=== PATIENT | male | born 1960 | race Caucasian/White ===

== ENCOUNTER 2017-02-23 07:50 | Inpatient (IN) | payer BC ==
[2017-02-23] MEDS ORDERED: Sodium Chloride 0.9% 2.5 ML Syringe FLUSH PRN ×2 (08:14→15:24)
[2017-02-23] MEDS ORDERED: Sodium Chloride 0.9% 10 ML Syringe FLUSH PRN ×2 (08:14→15:24)
--- NOTE | 2017-02-23 08:18 | EDM.PDOC ---
ED HPI Trauma - General Chief Complaint: Lower Extremity Injury/Pain Stated Complaint: PAINFUL FEET Time Seen by Provider: 02/23/17 08:01 - History of Present Illness INITIAL COMMENTS - FREE TEXT/NARRATIVE: HISTORY AND PHYSICAL: History of present illness: The patient is a 56-year-old male with a history of hypertension and hypercholesterolemia who has not taken his lisinopril for the last one year and presents with a six-day history of swollen and painful bilateral lower extremities and feet. The patient states he stopped following with his doctor because he was "a quack" and that he was trying to change and adjust his medications. The patient states he stopped taking his lisinopril and did not followup with another doctor. He denies any cardiac or renal problems and has been eating and drinking normally. He has had no fever chills chest pain palpitations shortness of breath or urinary problems. He has no neurosensory changes in his lower extremities but he noticed the swelling gradually has increased over the last 6 days. He does do a lot of standing at his job but that is not new. He has had no trauma to his legs. He has no discrete calf tenderness and the pain he is describing is more in his feet and he just feels very tight. Patient sleeps on 2 pillows at night but does not ever wake up with shortness of breath. The patient does admit that he does eat a lot of sodium rich foods and processed foods. He denies any headache or neurosensory changes or weakness in his body. Please note that initially on my evaluation patient denied any abdominal pain but does says that he felt very bloated. When I went back for a second evaluation he stated that he had some right-sided dull abdominal discomfort which is not associated with any other symptomatology. Review of systems: As per history of present illness and below otherwise all systems reviewed and negative. Past medical history: As per history of present illness and as reviewed below otherwise noncontributory. Surgical history: As per history of present illness and as reviewed below otherwise noncontributory. Social history: No reported history of drug or alcohol abuse. Family history: As per history of present illness and as reviewed below otherwise noncontributory. Physical exam: General: Well-developed well-nourished male was nontoxic and speaking clearly and easily in the ED. When I was in the room his blood pressure was 197/99. HEENT: Atraumatic, normocephalic, negative for conjunctival pallor or scleral icterus, mucous membranes moist, throat clear, neck supple, nontender, trachea midline. Lungs: Clear to auscultation, breath sounds equal bilaterally, chest nontender. No work or breathing or sensory muscle use Heart: S1S2, regular, negative for clicks, rubs, or JVD. Abdomen: Soft, nondistended. There is some mild tenderness on deep palpation of the entire right side of the abdomen appear Abdomen is very rotund and bowel sounds are hypoactive. It was somewhat firm and slightly tympanitic on percussion but there is no gross fluid wave. Negative for masses or hepatosplenomegaly. Negative for costovertebral tenderness. Pelvis: Stable nontender. Genitourinary: Deferred. Rectal: Deferred. Extremities: Atraumatic, negative for cords or calf pain. Neurovascular unremarkable. There is pedal edema that does not extend beyond the proximal aspect of the tib-fib area and it is +2-+ 3. There is no leg asymmetry. There is discomfort to palpation of the entire leg area screen calf tenderness. Neuro: Awake, alert, oriented. Cranial nerves II through XII unremarkable. Cerebellum unremarkable. Motor and sensory unremarkable throughout. Exam nonfocal. Skin: Normal turgor chronic upper forearm skin changes and some scabs seen. No evidence of any icterus appreciated Diagnostics: EKG CBC CMP troponin BNP UA chest x-ray CT scan of the abdomen and pelvis After obtaining the liver function tests and reevaluating the patient with his new statement that he has right-sided abdominal pain I will do CT scan of the abdomen and pelvis Therapeutics: IV O2 monitor Lasix 1110: I discussed the case with Dr. Clay our hospitalist and he agrees for admission and I will give him a dose of Lasix 40 mg. I've also discussed all testing results with the patient and his need for admission due to his elevated liver function tests and the CT scan findings as well as his clinical presentation. I discussed with them the CT scan findings of his right hip and he states he was unaware of an injury in the past but does state he has chronic pain there. Patient is currently giving a urine sample which we'll send and the floor can follow this result. Patient again states that he is only a social drinker and that he may of had a more drinking in his past but not recently. Impression: Extremity edema and ascites with elevated LFTs, new liver dysfunction Definitive disposition and diagnosis as appropriate pending reevaluation and review of above. Allergies/ADRs: Allergies No Known Allergies Allergy (Verified 02/23/17 08:01) Home Medications: Ambulatory Orders Lisinopril 20 mg PO DAILY 03/01/14 [Confirmed 02/23/17] PARoxetine HCl [Paxil] 0 mg PO 02/23/17 Venlafaxine [Effexor] 75 mg PO DAILY 02/23/17 [Confirmed 02/23/17] atorvaSTATin [Lipitor] 10 mg PO BEDTIME 02/23/17 [Confirmed 02/23/17] Past Medical History HEENT History: Reports: Impaired vision Cardiovascular History: Reports: High cholesterol, Hypertension Psychiatric History: Reports: Anxiety Social & Family History - Family History Family Medical History: Noncontributory - Tobacco Use Years of Tobacco use: 30 - Alcohol Use Days Per Week of Alcohol Use: 1 Number of Drinks Per Day: 3 Total Drinks Per Week: 3 - Recreational Drug Use Recreational Drug Use: No Review of Systems - Review of Systems Review Of Systems: ROS reveals no pertinent complaints other than HPI. Trauma Exam - Physical Exam Exam: See Below (See dictation) Course - Vital Signs Last Recorded V/S: Last Vital Signs Temp 37.1 C 02/23/17 08:04 Pulse 82 02/23/17 09:21 Resp 18 02/23/17 09:21 BP 186/86 H 02/23/17 09:21 Pulse Ox 97 02/23/17 09:21 - Orders/Labs/Meds Orders: Active Orders 24 hr Category Date Time Status Patient Status [ADT] Stat ADT 02/23/17 11:19 Ordered Cardiac Monitoring [RC] . DIRECTED Care 02/23/17 08:14 Active EKG Documentation Completion [RC] STAT Care 02/23/17 08:14 Active Oxygen Therapy, ED [RC] ASDIRECTED Care 02/23/17 08:14 Active Pulse Oximetry [RC] ASDIRECTED Care 02/23/17 08:14 Active UA W/MICROSCOPIC [URIN] Stat Lab 02/23/17 08:14 Uncollected Sodium Chloride 0.9% [Saline Flush] Med 02/23/17 08:14 Active 10 ml FLUSH ASDIRECTED PRN Sodium Chloride 0.9% [Saline Flush] Med 02/23/17 08:14 Active 2.5 ml FLUSH ASDIRECTED PRN Saline Lock Insert [OM.PC] Stat Oth 02/23/17 08:14 Ordered Medication Orders Sodium Chloride (Saline Flush) 10 ml FLUSH ASDIRECTED PRN PRN Reason: Keep Vein Open Sodium Chloride (Saline Flush) 2.5 ml FLUSH ASDIRECTED PRN PRN Reason: Keep Vein Open Labs: Laboratory Tests 02/23/17 02/23/17 02/23/17 Range/Units 08:20 08:20 08:20 WBC 14.94 H (4.0-11.0) K/uL RBC 3.72 L (4.50-5.90) M/uL Hgb 13.1 (13.0-17.0) g/dL Hct 40.3 (38.0-50.0) % MCV 108.3 H (80.0-98.0) fL MCH 35.2 H (27.0-32.0) pg MCHC 32.5 (31.0-37.0) g/dL RDW Std Deviation 57.2 (28.0-62.0) fl RDW Coeff of Heidi 14 (11.0-15.0) % Plt Count 299 (150-400) K/uL MPV 10.60 (7.40-12.00) fL Neut % (Auto) 72.1 (48.0-80.0) % Lymph % (Auto) 14.1 L (16.0-40.0) % [place] % (Auto) 10.9 (0.0-15.0) % Eos % (Auto) 2.6 (0.0-7.0) % Baso % (Auto) 0.3 (0.0-1.5) % Neut # (Auto) 10.8 H (1.4-5.7) K/uL Lymph # (Auto) 2.1 (0.6-2.4) K/uL [place] # (Auto) 1.6 H (0.0-0.8) K/uL Eos # (Auto) 0.4 (0.0-0.7) K/uL Baso # (Auto) 0.1 (0.0-0.1) K/uL Nucleated RBC % 0.0 /100WBC Nucleated RBCs # 0 K/uL Sodium 139 (136-146) mmol/L Potassium 3.6 (3.5-5.1) mmol/L Chloride 107 (98-110) mmol/L Carbon Dioxide 20 L (21-31) mmol/L BUN 7 (6.0-23.0) mg/dL Creatinine 0.7 (0.6-1.5) mg/dL Est Cr Clr Drug Dosing 107.60 mL/min Estimated GFR (MDRD) > 60.0 ml/min Glucose 113 H (60-110) mg/dL Calcium 8.6 L (8.8-10.8) mg/dL Total Bilirubin 3.4 H (0.1-1.5) mg/dL AST 239 H (5-40) IU/L ALT 43 (8-54) IU/L Alkaline Phosphatase 305 H (40-150) Troponin I < 0.10 (0.0-0.29) NG/ML B-Natriuretic Peptide (<100) PG/ML Total Protein 7.7 (6.0-8.0) g/dL Albumin 2.8 L (3.5-5.0) g/dL Globulin 4.9 H (2.0-3.5) g/dL Albumin/Globulin Ratio 0.6 L (1.3-2.8) /06/04 Range/Units 08:20 WBC (4.0-11.0) K/uL RBC (4.50-5.90) M/uL Hgb (13.0-17.0) g/dL Hct (38.0-50.0) % MCV (80.0-98.0) fL MCH (27.0-32.0) pg MCHC (31.0-37.0) g/dL RDW Std Deviation (28.0-62.0) fl RDW Coeff of Heidi (11.0-15.0) % Plt Count (150-400) K/uL MPV (7.40-12.00) fL Neut % (Auto) (48.0-80.0) % Lymph % (Auto) (16.0-40.0) % [place] % (Auto) (0.0-15.0) % Eos % (Auto) (0.0-7.0) % Baso % (Auto) (0.0-1.5) % Neut # (Auto) (1.4-5.7) K/uL Lymph # (Auto) (0.6-2.4) K/uL [place] # (Auto) (0.0-0.8) K/uL Eos # (Auto) (0.0-0.7) K/uL Baso # (Auto) (0.0-0.1) K/uL Nucleated RBC % /100WBC Nucleated RBCs # K/uL Sodium (136-146) mmol/L Potassium (3.5-5.1) mmol/L Chloride (98-110) mmol/L Carbon Dioxide (21-31) mmol/L BUN (6.0-23.0) mg/dL Creatinine (0.6-1.5) mg/dL Est Cr Clr Drug Dosing mL/min Estimated GFR (MDRD) ml/min Glucose (60-110) mg/dL Calcium (8.8-10.8) mg/dL Total Bilirubin (0.1-1.5) mg/dL AST (5-40) IU/L ALT (8-54) IU/L Alkaline Phosphatase (40-150) Troponin I (0.0-0.29) NG/ML B-Natriuretic Peptide 198 H (<100) PG/ML Total Protein (6.0-8.0) g/dL Albumin (3.5-5.0) g/dL Globulin (2.0-3.5) g/dL Albumin/Globulin Ratio (1.3-2.8) Meds: Medications Generic Name Dose Route Start Last Admin Trade Name Freq PRN Reason Stop Dose Admin Sodium Chloride 10 ml 02/23/17 08:14 Saline Flush FLUSH ASDIRECTED PRN Keep Vein Open Sodium Chloride 2.5 ml 02/23/17 08:14 Saline Flush FLUSH ASDIRECTED PRN Keep Vein Open Discontinued Medications Generic Name Dose Route Start Last Admin Trade Name Freq PRN Reason Stop Dose Admin Furosemide 40 mg 02/23/17 11:14 Lasix IVPUSH 02/23/17 11:15 NOW ONE Iopamidol 100 ml 02/23/17 09:20 02/23/17 10:56 Isovue Multipack-370 (76%) IVPUSH 02/23/17 09:21 100 ml ONETIME STA Administration Departure - Departure Time of Disposition: 11:22 Disposition: Admitted As Inpatient 67 Condition: good Clinical Impression: Ascites of liver, Bilateral lower extremity edema, Elevated LFTs Forms: ED Department Discharge - My Orders Last 24 Hours: My Active Orders 02/23/17 08:14 Cardiac Monitoring [RC] . DIRECTED EKG Documentation Completion [RC] STAT Oxygen Therapy, ED [RC] ASDIRECTED Pulse Oximetry [RC] ASDIRECTED UA W/MICROSCOPIC [URIN] Stat Sodium Chloride 0.9% [Saline Flush] 10 ml FLUSH ASDIRECTED PRN Sodium Chloride 0.9% [Saline Flush] 2.5 ml FLUSH ASDIRECTED PRN Saline Lock Insert [OM.PC] Stat 02/23/17 11:19 Patient Status [ADT] Stat - Assessment/Plan Last 24 Hours: My Active Orders 02/23/17 08:14 Cardiac Monitoring [RC] . DIRECTED EKG Documentation Completion [RC] STAT Oxygen Therapy, ED [RC] ASDIRECTED Pulse Oximetry [RC] ASDIRECTED UA W/MICROSCOPIC [URIN] Stat Sodium Chloride 0.9% [Saline Flush] 10 ml FLUSH ASDIRECTED PRN Sodium Chloride 0.9% [Saline Flush] 2.5 ml FLUSH ASDIRECTED PRN Saline Lock Insert [OM.PC] Stat 02/23/17 11:19 Patient Status [ADT] Stat
--- NOTE | 2017-02-23 08:51 | CR ---
EXAMINATION: Portable chest radiograph. HISTORY: Shortness of breath. FINDINGS: The trachea is midline. The cardiomediastinal silhouette is within normal limits. No pulmonary infil trates, effusions or pneumothorax. Osseous structures appear unremarkable. Old left clavicle fracture noted. IMPRESSION: No acute cardiopulmonary process.
[2017-02-23 09:01] LABS: CHLORIDE,CL 107 mmol/L (98-110); SODIUM,NA 139 mmol/L (136-146)
[2017-02-23] MEDS ORDERED: Iopamidol 755 MG/ML 500 ML Multipack Bottle IVPUSH STA (09:20)
--- NOTE | 2017-02-23 11:04 | CT ---
CT of the abdomen and pelvis with contrast. HISTORY: Pain TECHNIQUE: Axial CT images were obtained of the abdomen and pelvis following administration of 100 m L of Isovue-370 in the right anterior fossa without complication. Coronal and sagittal reconstructio ns obtained. FINDINGS: The lung bases are clear, no pleural effusion. Old left-sided rib fractures noted. The liver appears heterogeneous with several hypodense areas noted the largest measuring up to appro ximately 2 cm. There is a small to moderate amount of abdominal ascites. The spleen, adrenal glands, and pancreas appear grossly unremarkable. Cholelithiasis. No bulky retroperitoneal lymphadenopathy. The kidneys enhance and function symmetrically without evidence of obstructive uropathy. Nonobstruct ing nephrolithiasis noted bilaterally. There is a cyst within the upper pole of right kidney. The large and small bowel are normal in caliber without evidence of obstruction. No focal pericoloni c inflammation. Appendectomy clips are noted. Urinary bladder appears normal. No bulky pelvic lympha denopathy. Advanced osteoarthritic changes are noted within the hips bilaterally with extensive subchondral cys tic change within the right hip with a moderate nonfused osteochondral defect. Sclerotic changes are also noted within the left hip ingesting avascular necrosis. IMPRESSION: 1. Vague hypodensities within the liver, indeterminate in nature. 2. Abdominal ascites. 3. Nonobstructing nephrolithiasis. 4. Advanced osteoarthritic changes with likely a large osteochondral defect within the right hip. Po ssibly the sequela of previous avascular necrosis. 5. Increased sclerosis within the left femoral head consistent with avascular necrosis. 6. Cholelithiasis.
[2017-02-23] MEDS ORDERED: Furosemide 40 MG/4 ML VIAL IVPUSH ONE (11:14)
--- NOTE | 2017-02-23 15:13 | PCM.HP ---
Addendum entered and electronically signed by Tamir Smith MD 02/23/17 22:10: Further lab testing is suggestive of clinical status being much worst than how patient physically presents. Patient is AAAX3, cognitively intact, afebrile, mild scleral icterus without jaundice, very mild ruq tenderness, negative murphys sign. His only complaint is the swelling in his abdomen and feet. After receiving his second dose of Lasix 40 mg IV and his first dose of Lisinopril 10 mg his BP has normalized. Updated labs reveals borderline PT (1.12), significantly increased GGT (1137) ESR (60) & CRP (11.3). His Total BR, Alk Phos , AST, & WBC Count have all slightly worsened over the past 4 hours. I discussed the case with Dr. Clay and we decided to order RUQ US. We will repeat his labs for the morning tomorrow and if they continue to worsen or if he develops any type of symptoms we will schedule him for Paracentesis with fluid analysis to r/o any possiblity of SBP. Also patients Vitamin B12 is WNL at 300 therefore his macrocytosis is likely due to folate deficiency. We will start folate therapy. Original Note: H&P History of Present Illness - General Date of Service: 02/23/17 Source of Information: Patient History Limitations: Reports: No limitations. Denies: Altered mental status, Intoxication, Respiratory distress, Uncooperative - History of Present Illness Initial Comments - Free Text/Narative: 56 yo male presented to ED on 02/23/17 due to ascites and BL pedal edema and was admitted for volume overload. Symptoms first began 6 days ago. He has never had this happen to him before. Abdominal distension and BL foot swelling have gradually worsened over the past 6 days. He has difficulty walking now due to foot discomfort from the swelling. Abdominal distension is accompanied by bloating and mild right sided abdominal pain. His appetite is intact but he is unable to eat due to the distension. He also has some mild difficulty with taking a full breath due to the distension. He denies fever, chills, weight loss , vomiting, hematemesis, constipation, diarrhea, stool changes, pruritus, confusion or altered mental status. While in the ED he was given Lasix 40 mg IV which he states caused him significant amounts of relief Patient does not currently have a PCP and has not seen a doctor in over 1 year. He claims to have had a history of HTN for 15 years for which he was on Lisinopril 20 mg daily but the last physician took him off of for unknown reasons and he has not been on any blood pressure medication since then. He denies any previous history of liver disease. He does admit to drinking whisky daily. For the past several years he drinks 1-3 glasses of whisky per day. He denies any known history or exposure to Hepatitis B or C. He has not travelled out of the country, he has not been sexually active for 9 years and he denies any previous history of incarceration, IVDA or blood transfusion. He is unsure of his vaccine status but does not think he is up to date. He states he developed his daily alcohol habit a few years ago after developing pain in his right hip. The pain began suddenly after he tried to get out of bed and felt his leg pop. He tried taking OTC meds but no improvement so he turned to alcohol. He smokes 1.5 PPD. His home is originally in [place], [place] but he works in [place] in the [employer] industry. While in ED patient was hypertensive with significant ascites and BL Pedal edema. He had blood work which revealed Transamenitis, hyperbilirubinemia, hypoalbuminemia, leukocytosis & Macrocytosis. He had CXR done which showed no acute changes. He had CT abdomen done which revealed possible fatty liver, cholelithiasis, BL non-obstructing nephrolithiasis, & right hip avascular necrosis. He was given 40 mg IV Lasix which led to significant improvement according to patient. both feet Pain Score (Numeric/FACES): 4 - Related Data Allergies/Adverse Reactions: Allergies Allergy/AdvReac Type Severity Reaction Status Date / Time No Known Allergies Allergy Verified 02/23/17 08:01 Home Medications: Home Meds Lisinopril 20 mg PO DAILY 03/01/14 [History] PARoxetine HCl [Paxil] 0 mg PO 02/23/17 [History] Venlafaxine [Effexor] 75 mg PO DAILY 02/23/17 [History] atorvaSTATin [Lipitor] 10 mg PO BEDTIME 02/23/17 [History] Past Medical History HEENT History: Reports: Impaired vision Cardiovascular History: Reports: High cholesterol, Hypertension Musculoskeletal History: Reports: Arthritis, Fracture Other Musculoskeletal History: Arthritis to right hip Psychiatric History: Reports: Anxiety Oncologic (Cancer) History: Reports: Basal cell carcinoma Other Oncologic History: DX w/ Melanoma to face, chemo treatments and radiation therapy X 8 hours ago. - Past Surgical History HEENT Surgical History: Reports: None Cardiovascular Surgical History: Reports: None GI Surgical History: Reports: Cholecystectomy Musculoskeletal Surgical History: Reports: None Oncologic Surgical History: Reports: Other (see below) Other Oncologic Surgeries/Procedures: Skin graft and biopsy performed with melanoma Social & Family History - Family History Family Medical History: Noncontributory - Tobacco Use Smoking Status *Q: Current Every Day Smoker Years of Tobacco use: 30 Packs/Tins Daily: 1.5 Used Tobacco, but Quit: No Second Hand Smoke Exposure: No - Caffeine Use Caffeine Use: Reports: Coffee, Energy drinks, Soda, Tea Other Caffeine Use: 2 cups a day - Alcohol Use Days Per Week of Alcohol Use: 1 Number of Drinks Per Day: 2 Total Drinks Per Week: 2 Date of Last Drink: 02/22/17 Time of Last Drink: 14:00 - Recreational Drug Use Recreational Drug Use: No H&P Review of Systems - Review of Systems: Review Of Systems: See Below General: Denies: fever, chills, malaise, night sweats, decreased appetite, weight loss HEENT: Reports: no symptoms Pulmonary: Reports: No Symptoms Cardiovascular: Reports: no symptoms Gastrointestinal: Reports: Abdominal pain. Denies: Black stool, Bloody stool, Constipation, Diarrhea, Decreased appetite, Difficulty swallowing, Hematemesis, Hematochezia, Melena, Vomiting Genitourinary: Denies: dysuria, frequency, burning, pain, urgency, hematuria, flank pain Musculoskeletal: Reports: foot pain Skin: Denies: pruritis, rash, lesions Psychiatric: Denies: confusion, hallucinations (auditory), hallucinations ( visual) Neurological: Denies: Confusion, Dizziness, Syncope Exam - Exam Exam: See Below - Vital Signs Vital Signs: Last Vital Signs Temp 37.1 C 02/23/17 08:04 Pulse 85 02/23/17 11:34 Resp 18 02/23/17 11:34 BP 194/82 H 02/23/17 11:34 Pulse Ox 96 02/23/17 11:34 Weight: 84.5 kg - Exam General: alert, oriented, cooperative. No: mild distress, moderate distress, severe distress HEENT: EOMI, Mucosa moist & pink, Pupils equal, Pupils reactive, Scleral icterus Neck: supple, trachea midline Lungs: Clear to auscultation, Normal respiratory effort Cardiovascular: regular rate, regular rhythm Abdomen: distention, hepatomegaly. No: tenderness, splenomegaly, Wallace's sign Extremities: edema Skin: other (No jaundice) Neurological: cranial nerves intact, reflexes equal bilateral Neuro Extensive - Mental Status: alert, oriented x3, normal mood/affect, normal cognition, memory intact Psychiatric: alert, normal affect, normal mood - Patient Data Result Diagrams: 02/23/17 15:32 02/23/17 15:32 *Q Meaningful Use (ADM) - VTE *Q VTE Criteria *Q: - Stroke *Q Stroke Criteria *Q: - AMI *Q AMI Criteria *Q: Problem List Initiated/Reviewed/Updated: Yes Orders Last 24hrs: Medication Orders Sodium Chloride (Saline Flush) 10 ml FLUSH ASDIRECTED PRN PRN Reason: Keep Vein Open Sodium Chloride (Saline Flush) 2.5 ml FLUSH ASDIRECTED PRN PRN Reason: Keep Vein Open Assessment/Plan Comment:: Assessment: 1. Hepatomegaly with Vague liver hypodensities on CT, likely secondary to alcoholic hepatitis 2. Ascites, likely secondary to #1 3. BL Pedal Edema, likely secondary to #1 4. Transamenitis, likely secondary to #1 5. Hypoalbuminemia 6. Hyperbilirubinemia 7. Cholelithiasis, on CT 8. Non-obstructing Nephrolithiasis, on CT 9. HTN, uncontrolled, off treatment for 1 year 10. Leukocytosis with predominantly increased neutrophils 11. Macrocytosis 12. Alcohol Use Disorder 13. Tobacco Abuse Plan: 1. Admit to Inpatient 2. SCD's for DVT Prophylaxis 3. Low Sodium Diet 4. Strict I&O's Q4H & Daily weight checks 5. For Volume overload start Lasix 40 mg IV BID & close monitoring of volume status and renal function 6. For HTN start Start Lisinopril 10 mg PO Daily 7. For macrocytosis administer Vitamin B12 1000 mcg IM 8. obtain labs: PT/INR, PTT, GGT, ESR, CRP, B12 level, HAV AB, HBsAg, HBsAB, HCV RNA 9. daily AM labs: CBC, CMP, PT/INR 10. Nicotine Patch 21 gm 11. as per orders
[2017-02-23] MEDS ORDERED: Ibuprofen 600 MG Tab PO PRN (15:24)
[2017-02-23] MEDS ORDERED: Ondansetron 4 MG Tab.DIS PO PRN (15:24)
[2017-02-23] MEDS ORDERED: Cyanocobalamin (Vitamin B12) 1,000 MCG/ML SDV IM ONE (15:55)
[2017-02-23 16:26] LABS: CHLORIDE,CL 103 mmol/L (98-110); SODIUM,NA 140 mmol/L (136-146)
[2017-02-23] MEDS: Ondansetron 4 MG/2 ML SDV IVPUSH SCH ×3 (16:26→23:11)
[2017-02-23] MEDS: Lisinopril 10 MG Tab PO SCH (16:29)
[2017-02-23] MEDS: Nicotine 21 MG/24 Hr Patch TRDERM SCH (18:00)
[2017-02-23] MEDS: Furosemide 40 MG/4 ML VIAL IVPUSH SCH (21:18)
[2017-02-24] MEDS: Ondansetron 4 MG/2 ML SDV IVPUSH SCH ×4 (04:01→15:26)
[2017-02-24] MEDS: Furosemide 40 MG/4 ML VIAL IVPUSH SCH ×2 (08:30→20:01)
[2017-02-24] MEDS: Lisinopril 10 MG Tab PO SCH (08:30)
[2017-02-24] MEDS: Nicotine 21 MG/24 Hr Patch TRDERM SCH (08:31)
--- NOTE | 2017-02-24 09:59 | US ---
EXAMINATION: Right upper quadrant ultrasound HISTORY: Fatty liver COMPARISON: CT dated 02/23/2017 TECHNIQUE: Grayscale, spectral Doppler and color Doppler images obtained of the right upper quadrant . FINDINGS: The visualized pancreas appears normal. The liver is moderately increased in generalized e chotexture without a focal hepatic mass. The gallbladder wall thickness is normal. There are a few m obile filling defects along the wall of the gallbladder measuring up to 4 mm consistent with small p olyps. No shadowing gallstones identified. Common bile duct measures 2 mm. The right kidney measures at least 11.9 cm [id number] without evidence of hydronephrosis. Normal venous flow is noted withi n the liver. No Doppler provided of the portal vein. IMPRESSION: 1. Coarsened hepatic echotexture, this may represent hepatocellular disease versus fatty infiltratio n. 2. Small gallbladder polyps measuring up to 4 mm.
[2017-02-24 10:16] LABS: CHLORIDE,CL 99 mmol/L (98-110); SODIUM,NA 139 mmol/L (136-146)
[2017-02-24] MEDS: Folic Acid/Vitamin B Complex With C Cap PO SCH (10:30)
[2017-02-24] MEDS ORDERED: Potassium Chloride 20 MEQ Tab.ER PO ONE (11:30)
[2017-02-24] MEDS ORDERED: LORazepam 2 MG/ML MDV IVPUSH ONE (14:35)
--- NOTE | 2017-02-24 15:29 | PCM.PN ---
- General Info Date of Service: 02/24/17 Subjective Update: No overnight events. Patient has no new complaints. He would like to be discharged as soon as possible. Functional Status: Reports: pain controlled, tolerating diet, ambulating, urinating, new symptoms, incentive spirometry - Review of Systems General: Reports: No Symptoms HEENT: Reports: no symptoms Pulmonary: Reports: no symptoms Cardiovascular: Reports: No Symptoms Gastrointestinal: Reports: No symptoms Genitourinary: Reports: no symptoms Musculoskeletal: Reports: no symptoms Skin: Reports: no symptoms Neurological: Reports: No Symptoms Psychiatric: Reports: no symptoms - Patient Data Vitals - most recent: Last Vital Signs Temp 36.4 C 02/24/17 11:59 Pulse 76 02/24/17 11:59 Resp 22 H 02/24/17 11:59 BP 152/75 H 02/24/17 11:59 Pulse Ox 95 02/24/17 11:59 Weight - most recent: 80.422 kg I&O - last 24 hours: Intake & Output 02/24/17 02/24/17 02/24/17 06:59 14:59 22:59 Intake Total 450 Output Total 2050 Balance -1600 Lab Results last 24 hrs: Laboratory Results - last 24 hr 02/23/17 02/23/17 02/23/17 Range/Units 15:32 15:32 15:32 WBC (4.0-11.0) K/uL RBC (4.50-5.90) M/uL Hgb (13.0-17.0) g/dL Hct (38.0-50.0) % MCV (80.0-98.0) fL MCH (27.0-32.0) pg MCHC (31.0-37.0) g/dL RDW Std Deviation (28.0-62.0) fl RDW Coeff of Heidi (11.0-15.0) % Plt Count (150-400) K/uL MPV (7.40-12.00) fL Neut % (Auto) (48.0-80.0) % Lymph % (Auto) (16.0-40.0) % [place] % (Auto) (0.0-15.0) % Eos % (Auto) (0.0-7.0) % Baso % (Auto) (0.0-1.5) % Neut # (Auto) (1.4-5.7) K/uL Lymph # (Auto) (0.6-2.4) K/uL [place] # (Auto) (0.0-0.8) K/uL Eos # (Auto) (0.0-0.7) K/uL Baso # (Auto) (0.0-0.1) K/uL Nucleated RBC % /100WBC Nucleated RBCs # K/uL ESR 60 H (0-19) mm/hr INR (0.86-1.11) APTT 32.3 H (18.6-31.3) SEC Sodium 140 (136-146) mmol/L Potassium 3.7 (3.5-5.1) mmol/L Chloride 103 (98-110) mmol/L Carbon Dioxide 26 (21-31) mmol/L BUN 8 (6.0-23.0) mg/dL Creatinine 0.7 (0.6-1.5) mg/dL Est Cr Clr Drug Dosing 107.60 mL/min Estimated GFR (MDRD) > 60.0 ml/min Glucose 100 (60-110) mg/dL Calcium 8.6 L (8.8-10.8) mg/dL Magnesium 1.5 (1.5-2.3) mEq/L Total Bilirubin 4.1 H (0.1-1.5) mg/dL GGT (0-50) IU/L AST 247 H (5-40) IU/L ALT 45 (8-54) IU/L Alkaline Phosphatase 306 H (40-150) Lactate Dehydrogenase (125-220) IU/L C-Reactive Protein 11.30 H (0.0-0.5) mg/dL Total Protein 7.6 (6.0-8.0) g/dL Albumin 3.0 L (3.5-5.0) g/dL Globulin 4.6 H (2.0-3.5) g/dL Albumin/Globulin Ratio 0.7 L (1.3-2.8) Vitamin B12 300 (200-1100) PG/ML 02/23/17 02/23/17 02/23/17 Range/Units 15:32 15:32 15:32 WBC 15.06 H (4.0-11.0) K/uL RBC 3.78 L (4.50-5.90) M/uL Hgb 13.6 (13.0-17.0) g/dL Hct 41.0 (38.0-50.0) % MCV 108.5 H (80.0-98.0) fL MCH 36.0 H (27.0-32.0) pg MCHC 33.2 (31.0-37.0) g/dL RDW Std Deviation 56.8 (28.0-62.0) fl RDW Coeff of Heidi 14 (11.0-15.0) % Plt Count 273 (150-400) K/uL MPV 10.80 (7.40-12.00) fL Neut % (Auto) 75.1 (48.0-80.0) % Lymph % (Auto) 11.2 L (16.0-40.0) % [place] % (Auto) 11.1 (0.0-15.0) % Eos % (Auto) 2.1 (0.0-7.0) % Baso % (Auto) 0.5 (0.0-1.5) % Neut # (Auto) 11.3 H (1.4-5.7) K/uL Lymph # (Auto) 1.7 (0.6-2.4) K/uL [place] # (Auto) 1.7 H (0.0-0.8) K/uL Eos # (Auto) 0.3 (0.0-0.7) K/uL Baso # (Auto) 0.1 (0.0-0.1) K/uL Nucleated RBC % 0.0 /100WBC Nucleated RBCs # 0 K/uL ESR (0-19) mm/hr INR 1.12 H (0.86-1.11) APTT (18.6-31.3) SEC Sodium (136-146) mmol/L Potassium (3.5-5.1) mmol/L Chloride (98-110) mmol/L Carbon Dioxide (21-31) mmol/L BUN (6.0-23.0) mg/dL Creatinine (0.6-1.5) mg/dL Est Cr Clr Drug Dosing mL/min Estimated GFR (MDRD) ml/min Glucose (60-110) mg/dL Calcium (8.8-10.8) mg/dL Magnesium (1.5-2.3) mEq/L Total Bilirubin (0.1-1.5) mg/dL GGT 1137 H (0-50) IU/L AST (5-40) IU/L ALT (8-54) IU/L Alkaline Phosphatase (40-150) Lactate Dehydrogenase 143 (125-220) IU/L C-Reactive Protein (0.0-0.5) mg/dL Total Protein (6.0-8.0) g/dL Albumin (3.5-5.0) g/dL Globulin (2.0-3.5) g/dL Albumin/Globulin Ratio (1.3-2.8) Vitamin B12 (200-1100) PG/ML 02/24/17 02/24/17 02/24/17 Range/Units 09:26 09:26 09:26 WBC 15.24 H (4.0-11.0) K/uL RBC 3.90 L (4.50-5.90) M/uL Hgb 14.0 (13.0-17.0) g/dL Hct 42.8 (38.0-50.0) % MCV 109.7 H (80.0-98.0) fL MCH 35.9 H (27.0-32.0) pg MCHC 32.7 (31.0-37.0) g/dL RDW Std Deviation 57.8 (28.0-62.0) fl RDW Coeff of Heidi 15 (11.0-15.0) % Plt Count 333 (150-400) K/uL MPV 10.70 (7.40-12.00) fL Neut % (Auto) 78.0 (48.0-80.0) % Lymph % (Auto) 11.8 L (16.0-40.0) % [place] % (Auto) 7.3 (0.0-15.0) % Eos % (Auto) 2.6 (0.0-7.0) % Baso % (Auto) 0.3 (0.0-1.5) % Neut # (Auto) 11.9 H (1.4-5.7) K/uL Lymph # (Auto) 1.8 (0.6-2.4) K/uL [place] # (Auto) 1.1 H (0.0-0.8) K/uL Eos # (Auto) 0.4 (0.0-0.7) K/uL Baso # (Auto) 0.1 (0.0-0.1) K/uL Nucleated RBC % 0.0 /100WBC Nucleated RBCs # 0 K/uL ESR (0-19) mm/hr INR 1.09 (0.86-1.11) APTT (18.6-31.3) SEC Sodium 139 (136-146) mmol/L Potassium 3.2 L (3.5-5.1) mmol/L Chloride 99 (98-110) mmol/L Carbon Dioxide 29 (21-31) mmol/L BUN 10 (6.0-23.0) mg/dL Creatinine 0.8 (0.6-1.5) mg/dL Est Cr Clr Drug Dosing 94.15 mL/min Estimated GFR (MDRD) > 60.0 ml/min Glucose 127 H (60-110) mg/dL Calcium 8.8 (8.8-10.8) mg/dL Magnesium (1.5-2.3) mEq/L Total Bilirubin 4.3 H (0.1-1.5) mg/dL GGT (0-50) IU/L AST 222 H (5-40) IU/L ALT 44 (8-54) IU/L Alkaline Phosphatase 297 H (40-150) Lactate Dehydrogenase (125-220) IU/L C-Reactive Protein (0.0-0.5) mg/dL Total Protein 8.4 H (6.0-8.0) g/dL Albumin 3.0 L (3.5-5.0) g/dL Globulin 5.4 H (2.0-3.5) g/dL Albumin/Globulin Ratio 0.6 L (1.3-2.8) Vitamin B12 (200-1100) PG/ML Med Orders - Current: Current Medications Furosemide (Lasix) 40 mg IVPUSH BID [facility] Last Admin: 02/24/17 08:30 Dose: 40 mg Ibuprofen (Motrin) 600 mg PO Q6H PRN PRN Reason: Pain (mild 1-3) Last Admin: 02/23/17 16:26 Dose: 600 mg Lisinopril (Prinivil) 10 mg PO DAILY [facility] Last Admin: 02/24/17 08:30 Dose: 10 mg Multivit/Ca Carb/B Cmplx/FA/Prenat (Renal Caps Softgel) 1 cap PO DAILY [facility] Last Admin: 02/24/17 10:30 Dose: 1 cap Nicotine (Habitrol) 21 mg TRDERM DAILY [facility] Last Admin: 02/24/17 08:31 Dose: 21 mg Ondansetron HCl (Zofran Odt) 4 mg PO Q6H PRN PRN Reason: nausea, able to take PO Ondansetron HCl (Zofran) 4 mg IVPUSH Q4H [facility] Last Admin: 02/24/17 11:46 Dose: 4 mg Sodium Chloride (Saline Flush) 10 ml FLUSH ASDIRECTED PRN PRN Reason: Keep Vein Open Sodium Chloride (Saline Flush) 2.5 ml FLUSH ASDIRECTED PRN PRN Reason: Keep Vein Open Sodium Chloride (Saline Flush) 10 ml FLUSH ASDIRECTED PRN PRN Reason: Keep Vein Open Sodium Chloride (Saline Flush) 2.5 ml FLUSH ASDIRECTED PRN PRN Reason: Keep Vein Open Discontinued Medications Cyanocobalamin (Vitamin B12) 1,000 mcg IM ONETIME ONE Stop: 02/23/17 15:56 Last Admin: 02/23/17 16:29 Dose: 1,000 mcg Furosemide (Lasix) 40 mg IVPUSH NOW ONE Stop: 02/23/17 11:15 Last Admin: 02/23/17 11:27 Dose: 40 mg Iopamidol (Isovue Multipack-370 (76%)) 100 ml IVPUSH ONETIME STA Stop: 02/23/17 09:21 Last Admin: 02/23/17 10:56 Dose: 100 ml Lorazepam (Ativan) 2 mg IVPUSH ONETIME ONE Stop: 02/24/17 14:36 Potassium Chloride (Klor-Con M20) 40 meq PO ONETIME ONE Stop: 02/24/17 11:31 Last Admin: 02/24/17 11:47 Dose: 40 meq - Exam General: alert, oriented HEENT: Pupils equal, Pupils reactive, Scleral icterus Neck: supple, no JVD Lungs: Clear to auscultation, Normal respiratory effort Cardiovascular: Regular Rate, Regular Rhythm Abdomen: no tenderness, distension, other (hepatomegaly). No: rigidity, rebound , guarding Extremities: edema Neurological: no new focal deficit - Problem List Review Problem List Initiated/Reviewed/Updated: Yes - My Orders Last 24 Hours: My Active Orders 02/23/17 15:24 Patient Status [ADT] Routine Ambulate [RC] ASDIRECTED Height and Weight [RC] DAILY May Shower [RC] ASDIRECTED Oxygen Therapy [RC] PRN Up ad Jyoti [RC] ASDIRECTED VTE/DVT Education [RC] PER UNIT ROUTINE Vital Signs [RC] Q4H Ibuprofen [Motrin] 600 mg PO Q6H PRN Ondansetron [Zofran ODT] 4 mg PO Q6H PRN Sodium Chloride 0.9% [Saline Flush] 10 ml FLUSH ASDIRECTED PRN Sodium Chloride 0.9% [Saline Flush] 2.5 ml FLUSH ASDIRECTED PRN Saline Lock Insert [OM.PC] Routine Resuscitation Status Routine 02/23/17 15:28 Intake and Output [RC] Q12H 02/23/17 15:29 Sequential Compression Device [OM.PC] Per Unit Routine 02/23/17 15:30 Ondansetron [Zofran] 4 mg IVPUSH Q4H 02/23/17 15:32 HEP B SURFACE AB,QNT [REF] Routine HEPATITIS PANEL, ACUTE [REF] Routine 02/23/17 15:38 Antiembolic Devices [RC] PER UNIT ROUTINE 02/23/17 15:45 Lisinopril [Prinivil] 10 mg PO DAILY 02/23/17 16:30 Nicotine [Habitrol] 21 mg TRDERM DAILY 02/23/17 21:00 Furosemide [Lasix] 40 mg IVPUSH BID 02/23/17 21:23 Blood Culture x2 Reflex Set [OM.PC] Stat 02/23/17 21:35 CULTURE BLOOD [BC] Stat 02/23/17 21:45 CULTURE BLOOD [BC] Stat 02/23/17 Dinner 2 Gram Sodium Diet [DIET] 02/24/17 09:00 Folic Acid/Vitamin B Comp W-C [Renal Caps Softgel] 1 cap PO DAILY - Plan Plan:: Assessment: 56 year male with likely Chronic Liver Disease admitted for ascites , BL Pedal Edema transamenitis, hyperbilirubinemia, borderline PT, macrocytosos , Leukocytosis, Elevated ESR , Elevated CRP & HTN. US RUQ consistent with mild ascites. Plan: 1. schedule Diagnostic Paracentesis to r/o SBP 2. continue Lasix 40 mg IV BID 3. continue Lisinopril 10 mg daily 4. if BP still elevated today and overnight then we will start Spironolactone 25 mg daily 5. continue all other management as per orders
[2017-02-24] MEDS ORDERED: Ondansetron 4 MG/2 ML SDV IVPUSH PRN (15:37)
--- NOTE | 2017-02-24 16:48 | US ---
EXAMINATION: Ultrasound guided diagnostic paracentesis HISTORY: Ascites COMPARISON: Ultrasound from the same day TECHNIQUE: The procedure, risks, and benefits were discussed with the patient. Informed consent was obtained. The right lower quadrant was sterilely prepped and draped. 1% lidocaine was administered f or local anesthesia. Using ultrasound guidance a 22-gauge spinal needle was advanced into the larges t fluid collection within the right lower quadrant. 20 mL of yellow clear fluid was aspirated. The p atient tolerated the procedure well. IMPRESSION: Successful ultrasound-guided diagnostic paracentesis.
[2017-02-25 05:05] LABS: CHLORIDE,CL 102 mmol/L (98-110); SODIUM,NA 138 mmol/L (136-146)
[2017-02-25] MEDS: Nicotine 21 MG/24 Hr Patch TRDERM SCH (08:57)
[2017-02-25] MEDS: Lisinopril 10 MG Tab PO SCH (08:57)
[2017-02-25] MEDS: Furosemide 40 MG/4 ML VIAL IVPUSH SCH (08:57)
[2017-02-25] MEDS: Folic Acid/Vitamin B Complex With C Cap PO SCH (09:03)
--- NOTE | 2017-02-25 09:46 | PCM.DCSUM1 ---
Discharge Summary - Hospital Course Free Text/Narrative:: 56 yo male with history of alcohol use disorder admitted 02/23/17 for ascites and pedal edema. Patient had not seen a physician for several years prior to admission. He had hepatomegaly on exam. Ct abdomen revealed fatty liver with Ascites. Labs were suggestive of Acute Liver Dysfunction with Leukocytosis, elevated ESR and elevated CRP. Patient was treated with Lasix and his ascites improved significantly. On second day patient was feeling completely normal and was requesting to leave. Due to elevated WBC count, ESR and CRP there was concern for underlying infection or inflammatory process. Since this was patients first episode of ascites, diagnostic paracentesis was performed to r/o SBP and was negative. On 02/25 his labs showed improvement of liver dysfunction. Patient was asymptomatic, tolerating oral feeding, producing urine, having bowel movements, afebrile with stable vitals. Preliminary He was discharged on . He did not have PCP so he will be seeing me as out-patient within 2 weeks and I will be setting him up with referral to ui software developer. Admission Diagnosis: 1. Ascites 2. BL Pedal Edema 3. Acute Liver Failure 4. History of Alcohol Use Disorder Discharge Diagnosis/Plan: 1. Chronic Liver Disease with acute decompensation, improving -f/u with Dr. Smith who will arrange referral to ui software developer -Low sodium diet -avoid alcohol and tylenol -Lasix 40 mg daily with daily weight checks 2. Ascites, secondary to #1, resolved -as per #1 3. BL Pedal Edema, secondary to #1, resolved -as per #1 4. HTN, improved -Patient claims to have HTN in past for which he took Lisinopril 20 mg daily for 15 years which was discontinued for unknown reasons -Patient was treated with Lisinopril 10 mg daily along with LAsix 40 mg BID -discharge on Lasix 40 mg daily and Lisinopril 10 mg daily -f/u with Dr. Smith within 2 weeks 5. 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 Smith to arrange referral with ortho - Discharge Data Discharge Date: 02/25/17 Discharge Disposition: Home, Self-Care 01 Condition: Good - Patient Summary/Data Operative Procedure(s) Performed: diagnostic abdominal paracentesis Labs Pending at D/C: Acute Hepatitis panel, HBsAB, Final Blood Culture, Final Peritoneal fluid culture - Patient Instructions Diet: Low Sodium, No Alcoholic Beverages Activity: As Tolerated Notify Provider of: Fever, Nausea and/or Vomiting Other/Special Instructions: 1. No alcohol. 2. No tylenol. 3. Daily weight checks. 4. home BP monitoring 2-3x day - Discharge Plan Home Medications: Home Meds Lisinopril 20 mg PO DAILY 03/01/14 [History] PARoxetine HCl [Paxil] 0 mg PO 02/23/17 [History] Venlafaxine [Effexor] 75 mg PO DAILY 02/23/17 [History] atorvaSTATin [Lipitor] 10 mg PO BEDTIME 02/23/17 [History] Forms: ED Department Discharge Referrals: PCP,None [Primary Care Provider] - - Discharge Summary/Plan Comment DC Time >30 min.: Yes - Patient Data Vitals - Most Recent: Last Vital Signs Temp 36.6 C 02/25/17 04:00 Pulse 74 02/25/17 04:00 Resp 16 02/25/17 04:00 BP 130/74 02/25/17 08:57 Pulse Ox 94 L 02/25/17 04:00 Weight - Most Recent: 77.836 kg I&O - Last 24 hours: Intake & Output 02/24/17 02/25/17 02/25/17 22:59 06:59 14:59 Intake Total 1800 350 Output Total 1400 600 Balance 400 -250 Lab Results - Last 24 hrs: Laboratory Results - last 24 hr 02/24/17 02/24/17 02/24/17 Range/Units 09:26 09:26 09:26 WBC 15.24 H (4.0-11.0) K/uL RBC 3.90 L (4.50-5.90) M/uL Hgb 14.0 (13.0-17.0) g/dL Hct 42.8 (38.0-50.0) % MCV 109.7 H (80.0-98.0) fL MCH 35.9 H (27.0-32.0) pg MCHC 32.7 (31.0-37.0) g/dL RDW Std Deviation 57.8 (28.0-62.0) fl RDW Coeff of Heidi 15 (11.0-15.0) % Plt Count 333 (150-400) K/uL MPV 10.70 (7.40-12.00) fL Neut % (Auto) 78.0 (48.0-80.0) % Lymph % (Auto) 11.8 L (16.0-40.0) % [place] % (Auto) 7.3 (0.0-15.0) % Eos % (Auto) 2.6 (0.0-7.0) % Baso % (Auto) 0.3 (0.0-1.5) % Neut # (Auto) 11.9 H (1.4-5.7) K/uL Lymph # (Auto) 1.8 (0.6-2.4) K/uL [place] # (Auto) 1.1 H (0.0-0.8) K/uL Eos # (Auto) 0.4 (0.0-0.7) K/uL Baso # (Auto) 0.1 (0.0-0.1) K/uL Nucleated RBC % 0.0 /100WBC Nucleated RBCs # 0 K/uL INR 1.09 (0.86-1.11) Sodium 139 (136-146) mmol/L Potassium 3.2 L (3.5-5.1) mmol/L Chloride 99 (98-110) mmol/L Carbon Dioxide 29 (21-31) mmol/L BUN 10 (6.0-23.0) mg/dL Creatinine 0.8 (0.6-1.5) mg/dL Est Cr Clr Drug Dosing 94.15 mL/min Estimated GFR (MDRD) > 60.0 ml/min Glucose 127 H (60-110) mg/dL Calcium 8.8 (8.8-10.8) mg/dL Total Bilirubin 4.3 H (0.1-1.5) mg/dL AST 222 H (5-40) IU/L ALT 44 (8-54) IU/L Alkaline Phosphatase 297 H (40-150) Ammonia (14-68) UG/DL Total Protein 8.4 H (6.0-8.0) g/dL Albumin 3.0 L (3.5-5.0) g/dL Globulin 5.4 H (2.0-3.5) g/dL Albumin/Globulin Ratio 0.6 L (1.3-2.8) Fluid Type Fluid Color Fluid Appearance Fluid WBC K/uL Fluid RBC M/uL Fluid Mononuclear Cell % Fl Polymorphonucl Cell % Fluid Total Protein g/dL Fluid Albumin g/dL 02/24/17 02/25/17 02/25/17 Range/Units 15:55 04:33 04:33 WBC 12.35 H (4.0-11.0) K/uL RBC 3.53 L (4.50-5.90) M/uL Hgb 12.6 L (13.0-17.0) g/dL Hct 38.5 (38.0-50.0) % MCV 109.1 H (80.0-98.0) fL MCH 35.7 H (27.0-32.0) pg MCHC 32.7 (31.0-37.0) g/dL RDW Std Deviation 57.5 (28.0-62.0) fl RDW Coeff of Heidi 14 (11.0-15.0) % Plt Count 293 (150-400) K/uL MPV 10.90 (7.40-12.00) fL Neut % (Auto) 71.1 (48.0-80.0) % Lymph % (Auto) 15.5 L (16.0-40.0) % [place] % (Auto) 10.0 (0.0-15.0) % Eos % (Auto) 3.0 (0.0-7.0) % Baso % (Auto) 0.4 (0.0-1.5) % Neut # (Auto) 8.8 H (1.4-5.7) K/uL Lymph # (Auto) 1.9 (0.6-2.4) K/uL [place] # (Auto) 1.2 H (0.0-0.8) K/uL Eos # (Auto) 0.4 (0.0-0.7) K/uL Baso # (Auto) 0.1 (0.0-0.1) K/uL Nucleated RBC % 0.0 /100WBC Nucleated RBCs # 0 K/uL INR 1.12 H (0.86-1.11) Sodium (136-146) mmol/L Potassium (3.5-5.1) mmol/L Chloride (98-110) mmol/L Carbon Dioxide (21-31) mmol/L BUN (6.0-23.0) mg/dL Creatinine (0.6-1.5) mg/dL Est Cr Clr Drug Dosing mL/min Estimated GFR (MDRD) ml/min Glucose (60-110) mg/dL Calcium (8.8-10.8) mg/dL Total Bilirubin (0.1-1.5) mg/dL AST (5-40) IU/L ALT (8-54) IU/L Alkaline Phosphatase (40-150) Ammonia (14-68) UG/DL Total Protein (6.0-8.0) g/dL Albumin (3.5-5.0) g/dL Globulin (2.0-3.5) g/dL Albumin/Globulin Ratio (1.3-2.8) Fluid Type PER Fluid Color YELLOW Fluid Appearance CLEAR Fluid WBC 0.30 K/uL Fluid RBC 0.00 M/uL Fluid Mononuclear Cell 93.6 % Fl Polymorphonucl Cell 6.4 % Fluid Total Protein 2.8 g/dL Fluid Albumin 1.2 g/dL 02/25/17 02/25/17 Range/Units 04:33 04:33 WBC (4.0-11.0) K/uL RBC (4.50-5.90) M/uL Hgb (13.0-17.0) g/dL Hct (38.0-50.0) % MCV (80.0-98.0) fL MCH (27.0-32.0) pg MCHC (31.0-37.0) g/dL RDW Std Deviation (28.0-62.0) fl RDW Coeff of Heidi (11.0-15.0) % Plt Count (150-400) K/uL MPV (7.40-12.00) fL Neut % (Auto) (48.0-80.0) % Lymph % (Auto) (16.0-40.0) % [place] % (Auto) (0.0-15.0) % Eos % (Auto) (0.0-7.0) % Baso % (Auto) (0.0-1.5) % Neut # (Auto) (1.4-5.7) K/uL Lymph # (Auto) (0.6-2.4) K/uL [place] # (Auto) (0.0-0.8) K/uL Eos # (Auto) (0.0-0.7) K/uL Baso # (Auto) (0.0-0.1) K/uL Nucleated RBC % /100WBC Nucleated RBCs # K/uL INR (0.86-1.11) Sodium 138 (136-146) mmol/L Potassium 4.1 (3.5-5.1) mmol/L Chloride 102 (98-110) mmol/L Carbon Dioxide 26 (21-31) mmol/L BUN 12 (6.0-23.0) mg/dL Creatinine 0.8 (0.6-1.5) mg/dL Est Cr Clr Drug Dosing 94.15 mL/min Estimated GFR (MDRD) > 60.0 ml/min Glucose 93 (60-110) mg/dL Calcium 8.4 L (8.8-10.8) mg/dL Total Bilirubin 3.4 H (0.1-1.5) mg/dL AST 179 H (5-40) IU/L ALT 36 (8-54) IU/L Alkaline Phosphatase 270 H (40-150) Ammonia 68 (14-68) UG/DL Total Protein 6.9 (6.0-8.0) g/dL Albumin 2.7 L (3.5-5.0) g/dL Globulin 4.2 H (2.0-3.5) g/dL Albumin/Globulin Ratio 0.6 L (1.3-2.8) Fluid Type Fluid Color Fluid Appearance Fluid WBC K/uL Fluid RBC M/uL Fluid Mononuclear Cell % Fl Polymorphonucl Cell % Fluid Total Protein g/dL Fluid Albumin g/dL MARIELA Results - Last 24 hrs: Microbiology 02/24/17 15:55 Gram Stain - Preliminary Peritoneal Fluid Body Fluid Culture - Preliminary NO GROWTH AFTER 1 DAY 02/23/17 21:45 Aerobic Blood Culture - Preliminary Blood - Venous - Lab Draw NO GROWTH AFTER 1 DAY Anaerobic Blood Culture - Preliminary NO GROWTH AFTER 1 DAY 02/23/17 21:35 Aerobic Blood Culture - Preliminary Blood - Venous NO GROWTH AFTER 1 DAY Anaerobic Blood Culture - Preliminary NO GROWTH AFTER 1 DAY Med Orders - Current: Current Medications Furosemide (Lasix) 40 mg IVPUSH BID [facility] Last Admin: 02/25/17 08:57 Dose: 40 mg Ibuprofen (Motrin) 600 mg PO Q6H PRN PRN Reason: Pain (mild 1-3) Last Admin: 02/23/17 16:26 Dose: 600 mg Lisinopril (Prinivil) 10 mg PO DAILY [facility] Last Admin: 02/25/17 08:57 Dose: 10 mg Multivit/Ca Carb/B Cmplx/FA/Prenat (Renal Caps Softgel) 1 cap PO DAILY [facility] Last Admin: 02/25/17 09:03 Dose: 1 cap Nicotine (Habitrol) 21 mg TRDERM DAILY [facility] Last Admin: 02/25/17 08:57 Dose: 21 mg Ondansetron HCl (Zofran Odt) 4 mg PO Q6H PRN PRN Reason: nausea, able to take PO Ondansetron HCl (Zofran) 4 mg IVPUSH Q4H PRN PRN Reason: Nausea/Vomiting Sodium Chloride (Saline Flush) 10 ml FLUSH ASDIRECTED PRN PRN Reason: Keep Vein Open Sodium Chloride (Saline Flush) 2.5 ml FLUSH ASDIRECTED PRN PRN Reason: Keep Vein Open Sodium Chloride (Saline Flush) 10 ml FLUSH ASDIRECTED PRN PRN Reason: Keep Vein Open Sodium Chloride (Saline Flush) 2.5 ml FLUSH ASDIRECTED PRN PRN Reason: Keep Vein Open Discontinued Medications Cyanocobalamin (Vitamin B12) 1,000 mcg IM ONETIME ONE Stop: 02/23/17 15:56 Last Admin: 02/23/17 16:29 Dose: 1,000 mcg Furosemide (Lasix) 40 mg IVPUSH NOW ONE Stop: 02/23/17 11:15 Last Admin: 02/23/17 11:27 Dose: 40 mg Iopamidol (Isovue Multipack-370 (76%)) 100 ml IVPUSH ONETIME STA Stop: 02/23/17 09:21 Last Admin: 02/23/17 10:56 Dose: 100 ml Lorazepam (Ativan) 2 mg IVPUSH ONETIME ONE Stop: 02/24/17 14:36 Last Admin: 02/24/17 15:26 Dose: 2 mg Ondansetron HCl (Zofran) 4 mg IVPUSH Q4H [facility] Last Admin: 02/24/17 15:26 Dose: 4 mg Potassium Chloride (Klor-Con M20) 40 meq PO ONETIME ONE Stop: 02/24/17 11:31 Last Admin: 02/24/17 11:47 Dose: 40 meq *Q Meaningful Use (DIS) - VTE *Q VTE Criteria *Q: - Stroke *Q Stroke Criteria *Q: - AMI *Q AMI Criteria *Q:
[2017-02-25 10:48] VITALS: BP 135/70
== END 2017-02-25 12:00 | disposition home or self-care (01) ==
LOC: MW.ED 07:50 → MW.MS 12:10 → OBSVTOIN 12:10
PROVIDERS: ADMIT Internal Medicine; ATTEND Internal Medicine
PROC: 0W9G3ZZ Drainage of Peritoneal Cavity, Percutaneous Approach (ICD-10-PCS; principal; 2017-02-24)
DX: R18.8 Other ascites (principal); K76.9 Liver disease, unspecified; R60.9 Edema, unspecified; I10 Essential (primary) hypertension; M16.0 Bilateral primary osteoarthritis of hip; E78.00 Pure hypercholesterolemia, unspecified; F41.9 Anxiety disorder, unspecified; F17.200 Nicotine dependence, unspecified, uncomplicated; R16.0 Hepatomegaly, not elsewhere classified; R74.0 Nonspecific elevation of levels of transaminase and lactic acid dehydrogenase [LDH]; E88.09 Other disorders of plasma-protein metabolism, not elsewhere classified; E80.6 Other disorders of bilirubin metabolism; K80.20 Calculus of gallbladder without cholecystitis without obstruction; N20.0 Calculus of kidney; D72.829 Elevated white blood cell count, unspecified; D75.89 Other specified diseases of blood and blood-forming organs; F10.10 Alcohol abuse, uncomplicated; Z79.899 Other long term (current) drug therapy; Z85.820 Personal history of malignant melanoma of skin
CPT/HCPCS: 36415; 49083; 71010; 71010-26; 74177; 74177-26; 76705; 76705-26; 80053; 80074; 81001; 82140; 82607; 82977; 83615; 83735; 83880; 84157; 84484; 85025; 85610; 85652; 85730; 86140; 86706; 87040; 87070; 87205; 89050; 93005; 96374; 99285; 99285-25; A9270-GY; J1940; J2060; J2405; J3420; Q9967

== ENCOUNTER → 2017-03-10 | Outpatient (CLI) | payer BC ==
[2017-03-10 16:07] LABS: CHLORIDE,CL 102 mmol/L (98-110); SODIUM,NA 140 mmol/L (136-146)
== END ==
LOC: MW.CHRC 15:05
PROVIDERS: ATTEND Family Medicine
DX: K72.00 Acute and subacute hepatic failure without coma (principal)
CPT/HCPCS: 36415; 80053; 82103; 82104; 82140; 82390; 82728; 82787; 82977; 83516; 83550; 85025; 85610; 85652; 85730; 86038; 86140; 86255